=== PATIENT | male | born 2000 | race Caucasian/White ===

== ENCOUNTER 2022-08-13 13:30 | Emergency (ER) ==
[2022-08-13] MEDS ORDERED: Lidocaine 1% 5 ML VIAL INJECT ONE ×2 (18:35→19:17)
[2022-08-13] MEDS ORDERED: Clindamycin HCl 150 MG Cap PO ONE (20:25)
== END 2022-08-13 20:25 | disposition home or self-care (01) ==
LOC: MW.ED 13:30
DX: S61.316A Laceration without foreign body of right little finger with damage to nail, initial encounter (principal); F17.290 Nicotine dependence, other tobacco product, uncomplicated; W23.0XXA Caught, crushed, jammed, or pinched between moving objects, initial encounter; Y92.89 Other specified places as the place of occurrence of the external cause; Y99.0 Civilian activity done for income or pay
CPT/HCPCS: 12002; 73140; 99283; A9270; 99282